=== PATIENT | female | born 1945 | race Caucasian/White ===

== ENCOUNTER 2020-11-19 13:16 | Inpatient (IN) | payer MEDICARE ==
[~2020-11-19] VITALS: Ht 162.6 cm; Wt 73.0 kg
[~2020-11-19 13:16] MED LIST: COZAAR 25 MG TA25 M1 PO; MACROBID 100 M100 M1 PO; NORCO 5-325 TA1 EACH PO; SIMVASTATIN40 MG PO; TENORMIN50 MG PO
[2020-11-19 13:41] VITALS: BP 180/74
[2020-11-19 13:46] LABS: HEMATOCRIT 39.5 % (37.0-47.0); HEMOGLOBIN 13.7 gm/dL (12.0-15.0); MCH 31.2 pg (26.0-34.0); MCHC 34.8 g/dL (28.0-37.0); MCV 89.7 fL (80.0-100.0); MPV 8.7 fl. (7.2-11.1); NUCLEATED RBCS 0 /100WBC; PLATELET COUNT* 222 thou/uL (150-400); RDW-CV 13.7 % (10.5-14.5); WBC 8.2 thou/uL (4.0-11.0)
[2020-11-19 13:57] LABS: CALCIUM 8.6 mg/dL (8.5-10.1); CREATININE 0.8 mg/dL (0.6-1.3)
[2020-11-19 13:59] LABS: APTT 23.5 Seconds (25.0-31.3); PROTIME 10.3 Seconds (9.20-11.50)
[2020-11-19] MEDS ORDERED: CARVEDILOL12.5 MG PO (13:59)
[2020-11-19] MEDS ORDERED: LIPITOR 20 MG T20 M1 PO (13:59)
[2020-11-19] MEDS ORDERED: LOSARTAN-HCTZ1 EAC3 PO (14:00)
[2020-11-19 14:10] LABS: ALBUMIN 3.9 g/dL (3.4-5.0); TOTAL BILIRUBIN 0.6 mg/dL (<0.1-1.0); TOTAL PROTEIN 6.9 g/dL (6.4-8.2)
[2020-11-19 14:13] LABS: ABSOLUTE LYMPHOCYTES 0.8 thou/uL (0.8-5.3); ABSOLUTE MONOCYTES 0.2 thou/uL (0.0-1.2); ABSOLUTE NEUTROPHILS 7.2 thou/uL (1.6-8.1); PLATELET ESTIMATE ADEQUATE
[2020-11-19 14:17] LABS: URINE BILIRUBIN NEGATIVE (Negative); URINE BLOOD NEGATIVE (Negative); URINE CLARITY CLEAR; URINE COLOR YELLOW; URINE GLUCOSE-RANDOM NEGATIVE (Negative); URINE KETONES TRACE (Negative); URINE LEUKOCYTES NEGATIVE (Negative); URINE NITRITE NEGATIVE (Negative); URINE PROTEIN TRACE (Negative); URINE SPECIFIC GRAVITY 1.025 (1.005-1.030); URINE UROBILINOGEN 0.2 E.U./dl (0.2-1.0)
--- NOTE | 2020-11-19 16:16 | EKG ---
[place] [address] ELECTROCARDIOGRAM REPORT Name: RUBI YOON Room: [place] [address] ADM IN ..#: [id number] Admission: 11/19/20 Attend Phys: Leland Rayo Discharge: Date of : 41 Date of Service: 11/19/20 1341 Report #: [id number] THIS REPORT FOR: //name// [facility] ED Test Date: 2020-11-19 Test Time: 13:41:42 Pat Name: RUBI YOON Department: Room: [facility] Gender: F [employer]ing Machine Adjuster: TDS : 1945 Requested By: Tanner Crowley Order Number: [id number] MD: Vijay Wheat Measurements Intervals [place] Rate: 79 P: 37 VA: 183 QRS: 0 QRSD: 107 T: 178 QT: 448 QTc: 514 Interpretive Statements Sinus rhythm LVH with secondary repolarization abnormality; LV strain or ischemia suggested Prolonged QT interval No previous ECG available for comparison Electronically Signed On 11-19-2020 16:16:32 PATIENT SUPPORT PARTNER by Vijay Wheat [email or web address] <ELECTRONICALLY SIGNED> By: Vijay Wheat MD, [facility] 11/19/20 1616 1341 1341 Vijay Wheat MD, [facility] /EPI
[2020-11-19 19:55] VITALS: BP 169/66
== END 2020-11-19 19:57 | disposition short-term general hospital (02) | DRG 64 ==
LOC: M.ERS 13:16 → M.TBA-ER 14:30
PROVIDERS: Emergency Medicine Emergency Medical Services; ADMIT Internal Medicine; ATTEND Internal Medicine
DX: I63.89 Other cerebral infarction (principal); G93.41 Metabolic encephalopathy; R47.01 Aphasia; I10 Essential (primary) hypertension; Z20.822 Contact with and (suspected) exposure to COVID-19; E66.3 Overweight; Z68.27 Body mass index [BMI] 27.0-27.9, adult; Z95.5 Presence of coronary angioplasty implant and graft; Z79.82 Long term (current) use of aspirin; Z79.899 Other long term (current) drug therapy; Z86.73 Personal history of transient ischemic attack (TIA), and cerebral infarction without residual deficits